=== PATIENT | female | born 1975 | race African-American/Black ===

== ENCOUNTER 2019-01-27 12:54 | Emergency (ER) | payer OTHER ==
[2019-01-27 13:18] VITALS: BMI 29.2
[2019-01-27] MEDS ORDERED: ACETAMINOPHEN 1000 MG/100 ML VIAL (NON FORMULARY) IVPB ONE (14:00)
[2019-01-27] MEDS ORDERED: SODIUM CHLORIDE 1,000 ML IV STA (14:00)
[2019-01-27] MEDS ORDERED: ACETAMINOPHEN INJECTION 100 ML IVPB ONE (14:02)
--- NOTE | 2019-01-27 14:16 | PDOC ---
History of Present Illness - General Chief Complaint: Pain Stated Complaint: ABD PAIN Time Seen by Provider: 01/27/19 13:42 History Source: Patient Exam Limitations: Clinical Condition - History of Present Illness Initial Comments: 01/27/19 13:48 Patient with past medical history Of uterine fibroids presented by PCP Dr. Hager for evaluation of possible pyelonephritis status post failed outpatient management for UTI on Macrobid. Letter was brought in by patient from PCP shows patient was treated for UTI 2 months ago on Cipro but patient symptoms persisted and was seen again a week ago by PCP who prescribed him Macrobid basal urine culture sensitivity but patient has been vomiting antibiotics and patient reported able to unable to keep anything down. Patient reported taking 1 dose of antibiotics and has been vomiting the rest of antibiotic for the past 3 days. Patient went to PCP and was advised to come to the ED. Patient reported intermittent fevers for the past week due to feeling hot but did not check a temperature. Patient reported left flank and left lower quadrant pain for over a week now. Denies vaginal bleeding, vaginal discharge. Denies any other symptoms Is this a multiple visit Asthma Patient?: No Timing/Duration: 1 week Past History - Past Medical History Allergies/Adverse Reactions: Allergies Allergy/AdvReac Type Severity Reaction Status Date / Time No Known Allergies Allergy Verified 01/27/19 13:18 Home Medications: Ambulatory Orders Nitrofurantoin Macrocrystal [Nitrofurantoin] 0 mg PO DAILY 01/27/19 COPD: No - Surgical History Abdominal Surgery: Yes (fibroid removed FROM RIGHT) - Psycho Social/Smoking Cessation Hx Smoking Status: No Smoking History: Never smoked Number of Cigarettes Smoked Daily: 0 Information on smoking cessation initiated: No Hx Alcohol Use: No Drug/Substance Use Hx: No Substance Use Type: Alcohol Review of Systems - Review of Systems Able to Perform ROS?: Yes Is the patient limited Y[place]ut proficient: No Constitutional: Yes: Fever (tactile fever). No: Chills, Malaise, Weakness HEENTM: No: Symptoms Reported, See HPI, Eye Pain, Blurred Vision, Tearing, Recent change in vision, Double Vision, Cataracts, Ear Pain, Ocular Prothesis, Ear Discharge, Nose Pain, Nose Congestion, Tinnitus, Nose Bleeding, Hearing Loss , Throat Pain, Throat Swelling, Mouth Pain, Dental Problems, Difficulty Swallowing, Mouth Swelling, Other Respiratory: No: Symptoms reported, See HPI, Cough, Orthopnea, Shortness of Breath, SOB with Exertion, SOB at Rest, Stridor, Wheezing, Productive cough, Hemoptysis, Other Cardiac (ROS): No: Symptoms Reported, See HPI, Chest Pain, Edema, Irregular Heart Rate, Lightheadedness, Palpitations, Syncope, Chest Tightness, Other ABD/GI: Yes: Symptoms Reported, See HPI, Nausea, Vomiting, Abdominal cramping ( LLQ and suprapubic pain). No: Abdominal Distended, Abd. Pain w/ defecation, Blood Streaked Bowels, Constipated, Diarrhea, Difficulty Swallowing, Poor Appetite, Rectal Bleeding, Indigestion, Tarry Stools : Yes: Symptoms Reported, See HPI, Dysuria, Frequency, Flank Pain (left flank pain), Urgency. No: Burning, Hematuria, Incontinence Musculoskeletal: Yes: Symptoms Reported, See HPI. No: Back Pain Integumentary: No: Symptoms Reported, Other Neurological: No: Symptoms reported, Weakness, Dizziness All Other Systems: Reviewed and Negative *Physical Exam - Vital Signs Last Vital Signs Temp Pulse Resp BP Pulse Ox 98.7 F 110 H 18 125/86 100 01/27/19 13:11 01/27/19 13:11 01/27/19 13:11 01/27/19 13:11 01/27/19 13:42 - Physical Exam Comments: 01/27/19 14:14 GENERAL: Well developed, well nourished. Awake and alert. No acute distress. NECK: Supple. Full ROM. CARDIOVASCULAR: Regular rate and rhythm. No murmurs, rubs, or gallops. Distal pulses are 2+ and symmetric. PULMONARY: No evidence of respiratory distress. Lungs clear to auscultation bilaterally. No wheezing, rales or rhonchi. ABDOMINAL: Soft.mild TTP over suprapubic and LLQ areas. mild left flank tenderness. Non- distended. No rebound or guarding. No organomegaly. Normoactive bowel sounds. MUSCULOSKELETAL Normal range of motion at all joints. no CVAT b/l SKIN: Warm and dry. Normal capillary refill. No rashes. No cyanosis. NEUROLOGICAL: Alert, awake, appropriate. Gait is normal without ataxia. PSYCHIATRIC: Cooperative. Good eye contact. Appropriate mood General Appearance: Yes: Nourished, Appropriately Dressed. No: Apparent Distress ED Treatment Course - LABORATORY CBC & Chemistry Diagram: 01/27/19 14:10 01/27/19 14:10 Medical Decision Making - Medical Decision Making 01/27/19 15:51 Patient with history Of uterine fibroids presented by PCP Dr. Hager for evaluation of possible pyelonephritis status post failed outpatient management for UTI on Macrobid. Letter was brought in by patient from PCP shows patient was treated for UTI 2 months ago on Cipro but patient symptoms persisted and was seen again a week ago by PCP who prescribed him Macrobid basal urine culture sensitivity but patient has been vomiting antibiotics and patient reported able to unable to keep anything down. Patient reported taking 1 dose of antibiotics and has been vomiting the rest of antibiotic for the past 3 days. Patient went to PCP and was advised to come to the ED. Patient reported intermittent fevers for the past week due to feeling hot but did not check a temperature. Patient reported left flank and left lower quadrant pain for over a week now. Denies vaginal bleeding, vaginal discharge. Denies any other symptoms Exam significant for mild tenderness to suprapubic region and left lower quadrant without guarding with mild tenderness to left flank area. No CVA tenderness no vaginal bleeding on exam visible lesions and no CMT. Symptoms likely cystitis versus cholelithiasis versus less likely pyelonephritis versus diverticulitis. CBC, CMP and lipase lab ordered. Urine hCG lab ordered. Abdominal CT with IV contrast and without contrast ordered to rule out kidney stone or possible diverticulitis.IV hydration with 1 L normal saline ordered. Treat based on lab and imaging results 01/27/19 15:54 01/27/19 16:17 Patient stable and asymptomatic post Tylenol and IV fluids. labs still pending. Patient signout to oncoming [employer] Eric for f/u care Discharge - Discharge Information Problems reviewed: Yes Clinical Impression/Diagnosis: UTI (urinary tract infection) Qualifiers: Urinary tract infection type: acute cystitis Hematuria presence: without hematuria Qualified Code(s): N30.00 - Acute cystitis without hematuria Condition: Stable - Follow up/Referral Referrals: Gerri Hager MD [Primary Care Provider] - - Patient Discharge Instructions - Post Discharge Activity
[2019-01-27 14:38] LABS: BASO % 0.7 % (0-2.0); EOS % 1.1 % (0-4.5); HEMOGLOBIN 9.5 GM/dL (10.7-15.3); LYMPH % 22.9 % (8-40); MCH 26.3 pg (25.7-33.7); MCHC 32.9 g/dl (32.0-36.0); MEAN PLT VOLUME 9.3 fl (7.5-11.1); MONO % 16.6 % (3.8-10.2); NEUT % 58.7 % (42.8-82.8); PLATELET COUNT 418 K/MM3 (134-434); RBC 3.62 M/mm3 (3.60-5.2); WHITE BLOOD COUNT 8.8 K/mm3 (4.0-10.0)
[2019-01-27 14:44] LABS: HYALINE CASTS 13 /lpf (0-8); URINE APPEARANCE TURBID; URINE BACTERIA 245.7 /hpf (NEGATIVE); URINE BILIRUBIN NEGATIVE (NEGATIVE); URINE COLOR YELLOW; URINE GLUCOSE (UA) NEGATIVE (NEGATIVE); URINE KETONE 2+ (NEGATIVE); URINE LEUK ESTERASE TRACE (NEGATIVE); URINE NITRITE NEGATIVE (NEGATIVE); URINE PROTEIN 3+ (NEGATIVE); URINE WBC 16 /hpf (0-5)
[2019-01-27 15:06] LABS: BILIRUBIN,TOTAL 0.2 mg/dL (0.2-1); BLOOD UREA NITROGEN 8.4 mg/dL (7-18); CALCIUM 8.9 mg/dL (8.5-10.1); CREATININE 0.8 mg/dL (0.55-1.3); TOT PROT 7.7 g/dl (6.4-8.2)
[2019-01-27 15:10] LABS: URINE RBC 7 /hpf (0-4)
[2019-01-27 15:20] LABS: ANISOCYTOSIS 0; MACROCYTOSIS 0; PLATELET ESTIMATE NORMAL
--- NOTE | 2019-01-27 19:21 | PDOC ---
*Physical Exam - Vital Signs Last Vital Signs Temp Pulse Resp BP Pulse Ox 97.7 F 87 16 117/82 100 01/27/19 18:55 01/27/19 18:55 01/27/19 18:55 01/27/19 18:55 01/27/19 13:42 - Physical Exam General Appearance: Yes: Appropriately Dressed. No: Apparent Distress Neck: positive: Trachea midline, Supple Respiratory/Chest: positive: Lungs Clear, Normal Breath Sounds. negative: Respiratory Distress, Accessory Muscle Use Cardiovascular: positive: Regular Rhythm, Regular Rate, S1, S2. negative: Murmur Gastrointestinal/Abdominal: positive: Normal Bowel Sounds, Soft. negative: Tender Musculoskeletal: positive: Normal Inspection. negative: CVA Tenderness Extremity: positive: Normal Capillary Refill, Normal Inspection Integumentary: positive: Normal Color, Dry, Warm ED Treatment Course - LABORATORY CBC & Chemistry Diagram: 01/27/19 14:10 01/27/19 14:10 - ADDITIONAL ORDERS Additional order review: Laboratory Results 01/27/19 01/27/19 01/27/19 14:10 14:10 14:00 Sodium 135 L Potassium 4.0 Chloride 96 L Carbon Dioxide 28 Anion Gap 10 BUN 8.4 Creatinine 0.8 Est GFR (CKD-EPI)AfAm 103.19 Est GFR (CKD-EPI)NonAf 89.04 Random Glucose 84 Calcium 8.9 Total Bilirubin 0.2 AST 17 ALT 18 Alkaline Phosphatase 99 Total Protein 7.7 Albumin 3.0 L Serum , Qual Negative Urine Color Yellow Urine Appearance Turbid Urine pH 6.0 Ur Specific [place] 1.014 Urine Protein 3+ H Urine Glucose (UA) Negative Urine Ketones 2+ H Urine Blood 1+ H Urine Nitrite Negative Urine Bilirubin Negative Urine Urobilinogen 1.0 Ur Leukocyte Esterase Trace Urine WBC (Auto) 16 Urine RBC (Auto) 7 Urine Casts (Auto) 13 U Epithel Cells (Auto) 24.0 U Sm Round Cell (Auto) None seen Urine Bacteria (Auto) 245.7 01/27/19 14:10 RBC 3.62 MCV 80.0 MCHC 32.9 RDW 14.0 MPV 9.3 Neutrophils % 58.7 Lymphocytes % 22.9 Monocytes % 16.6 H Eosinophils % 1.1 Basophils % 0.7 - Medications Given in the ED: ED Medications Discontinued Medications Generic Name Dose Route Start Last Admin Trade Name Freq PRN Reason Stop Dose Admin Acetaminophen 1,000 mg 01/27/19 14:00 01/27/19 14:10 Ofirmev Injection - IVPB 01/27/19 14:01 1,000 mg ONCE ONE Administration Sodium Chloride 1,000 mls @ 1,000 mls/hr 01/27/19 14:00 01/27/19 14:10 Normal Saline - IV 01/27/19 14:59 1,000 mls/hr ASDIR STA Administration ED Progress Note - Progress Note Progress Note: 01/27/19 19:19 Received patient from KAVITA Mercer Briefly this is a 43-year-old woman history of uterine fibroids Sent from her primary doctor for possible pyelonephritis as patient was treated for UTI approximately 1 month ago with Cipro with recurrent left flank pain. Patient's PMD had which the patient has had a difficult time tolerating Prescribed Macrobid. Patient took 1 dose but has been vomiting during other doses. Laboratory testing is unremarkable. UA With trace leuk esterase and 16 WBCs on high-power field. 24 epithelial cells present likely contamination of sample. Patient is pending CT and reassessment for disposition. Medical Decision Making - Medical Decision Making 01/27/19 19:21 CT scan as read by Dr. Hammond: Mild left hydroureter nephrosis is noted. No definite current urinary tract calculus is identified-? Recently passed calculus. Mild left perirenal and periureteral soft tissue stranding is seen suggestive of acute/recent obstruction and/or acute pyelitis/ureteritis. Note is also made of small enhancement of the left renal pelvis and proximal left ureter which also may be the basis of acute/recent obstruction and/or inflammation. Small amount of pelvic free fluid No CT evidence of acute diverticulitis. Dilated left ureter and veins uterine veins are seen as well as dilatation of the left ovarian vein-? Possible pelvic congestion syndrome Fibroid uterus Physical exam is unremarkable. Possible recent passed kidney stone as there is no evidence of urinary tract infection at this time. Patient will be given a p.o. trial and if successful will be discharged home to continue antibiotics previously prescribed. Discharge - Discharge Information Problems reviewed: Yes Clinical Impression/Diagnosis: Flank pain Condition: Fair Disposition: HOME - Admission No - Additional Discharge Information Prescriptions: Ondansetron [Zofran -] 4 mg PO BID PRN #14 tablet PRN Reason: Nausea - Follow up/Referral Referrals: Gerri Hager MD [Primary Care Provider] - - Patient Discharge Instructions Additional Instructions: Take antibiotics as previously prescribed. You been given a prescription for Zofran. Take the medicine half hour prior to taking her antibiotics. Return to the emergency department for any new or worsening symptoms. Thank you very much for choosing us to provide your emergent health care needs. - Post Discharge Activity
[2019-01-27 20:33] VITALS: BP 122/82; PULSE 92; TEMP 97.5
== END 2019-01-27 20:10 | disposition home or self-care (01) ==
LOC: JER 12:54
PROC: 3E033NZ Introduction of Analgesics, Hypnotics, Sedatives into Peripheral Vein, Percutaneous Approach (ICD-10-PCS; principal; 2019-01-27)
DX: N30.00 Acute cystitis without hematuria (principal); Z87.440 Personal history of urinary (tract) infections; Z86.2 Personal history of diseases of the blood and blood-forming organs and certain disorders involving the immune mechanism
CPT/HCPCS: 36415; 74178-TC; 80053; 81003; 84703; 85025; 99284-25; J0131; J7030

== ENCOUNTER 2022-04-06 13:55 | Emergency (ER) | payer OTHER ==
[2022-04-06 14:01] VITALS: BP 132/82; PULSE 88; RESP 18; BMI 31.8
[2022-04-06] MEDS ORDERED: IBUPROFEN 600 MG TABLET (FP) PO ONE (14:54)
== END 2022-04-06 17:12 | disposition home or self-care (01) ==
LOC: JER 13:55 → JERFT 13:55
DX: R05.1 Acute cough (principal); M54.50 Low back pain, unspecified
CPT/HCPCS: 71046-TC-FY; 99283-25